=== PATIENT | female | born 1985 | race American Indian/Alaskan Native ===

== ENCOUNTER 2016-08-29 15:27 | Emergency (ER) | payer OTHER ==
[2016-08-29] MEDS ORDERED: TYLENOL PO ONE (18:22)
[2016-08-29 20:00] VITALS: BP 119/73
[2016-08-29] MEDS ORDERED: NACL 0.9% IR ONE (20:08)
[2016-08-29] MEDS ORDERED: PERCOCET 5/325 PO ONE (20:08)
[2016-08-29] MEDS ORDERED: XYLOCAINE 1% MPF 5 mL INFILTRATI ONE (20:08)
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
--- NOTE | 2016-08-29 21:09 | XRay Report ---
FINAL REPORT EXAM: XR WRIST 3 LT HISTORY: rt wrist injury with pain TECHNIQUE: 4 views of the left wrist PRIORS: None. FINDINGS: The bones are normally aligned and mineralized. The joint spaces are well-preserved. There is no evidence of acute fracture. The soft tissues are unremarkable. IMPRESSION: No evidence of acute fracture or subluxation.
== END 2016-08-29 22:20 | disposition home or self-care (01) ==
LOC: ED 15:27
DX: S01.511A Laceration without foreign body of lip, initial encounter (principal); M54.5 Low back pain; M25.50 Pain in unspecified joint; F17.200 Nicotine dependence, unspecified, uncomplicated; V89.2XXA Person injured in unspecified motor-vehicle accident, traffic, initial encounter; Y93.9 Activity, unspecified; Y92.410 Unspecified street and highway as the place of occurrence of the external cause; Y99.9 Unspecified external cause status

== ENCOUNTER 2017-07-05 09:40 | Emergency (ER) | payer SELFPAY ==
[2017-07-05] MEDS ORDERED: REGLAN IV ONE (10:14)
[2017-07-05] MEDS ORDERED: ZOFRAN ODT PO ONE (10:14)
[2017-07-05] MEDS ORDERED: NACL 0.9% 1000 ML 1,000 ML IV ONE ×2 (10:14→11:30)
[2017-07-05] MEDS ORDERED: BENTYL IM ONE (10:14)
--- NOTE | 2017-07-05 10:19 | Emergency Department Report ---
Chief Complaint: Abdominal Pain Stated Complaint: ABDOMINAL PAIN/VOMITING Time Seen by Provider: 07/05/17 10:16 - HPI History of Present Illness: pt is a 32 y/o aaf with hx cyclic N/V usually controlled with zofran, CoQ10 advise out of medication x 1 week abdominal pain with n/v x 2 days , does not have pcp at this time, last po intake yesterday. - Exam Vital Signs: Vital Signs 07/05/17 10:02 Temperature 97.4 F L Pulse Rate 51 L Respiratory 16 Rate Blood Pressure 126/79 O2 Sat by Pulse 100 Oximetry MSE screening note: Focused history and physical exam performed. Due to findings the following was ordered: ED Disposition for MSE Condition: Stable Instructions: Abdominal Pain (ED)
[2017-07-05 10:37] LABS: Basophils % (Auto) 0.3 % (0.0-1.8); Eosinophils % (Auto) 0.5 % (0.0-4.3); Hematocrit 40.7 % (30.3-42.9); Hemoglobin 13.4 gm/dl (10.1-14.3); Mean Corpuscular HGB Conc 33 % (30-34); Mean Corpuscular Hemoglobin 29 pg (28-32); Mean Corpuscular Volume 87 fl (79-97); Platelet Count 207 K/mm3 (140-440); Red Blood Count 4.66 M/mm3 (3.65-5.03); Red Cell Distribution Width 13.5 % (13.2-15.2); White Blood Count 15.6 K/mm3 (4.5-11.0)
[2017-07-05 10:56] LABS: Alanine Aminotransferase 50 units/L (7-56); Albumin 4.4 g/dL (3.9-5); Albumin/Globulin Ratio 1.5 %; Alkaline Phosphatase 98 units/L (35-129); Anion Gap 17 mmol/L; BUN/Creatinine Ratio 13; Bilirubin,Total < 0.20 mg/dL (0.1-1.2); Blood Urea Nitrogen 10 mg/dL (7-17); Calcium 8.7 mg/dL (8.4-10.2); Carbon Dioxide 25 mmol/L (22-30); Chloride 102.4 mmol/L (98-107); Glucose 143 mg/dL (65-100); Potassium 3.9 mmol/L (3.6-5.0); Sodium 140 mmol/L (137-145); Total Protein 7.4 g/dL (6.3-8.2)
--- NOTE | 2017-07-05 14:13 | Emergency Department Report ---
ED General Adult HPI - General Chief complaint: Abdominal Pain Stated complaint: ABDOMINAL PAIN/VOMITING Time Seen by Provider: 07/05/17 10:16 Source: patient, EMS Mode of arrival: Wheelchair Limitations: No Limitations - History of Present Illness Initial comments: Patient is a 32-year-old female past history of cyclic vomiting syndrome who presents with epigastric pain and nausea and vomiting. Patient states that she has not been able to hold down anything for the last couple days. She states that she lasts used marijuana yesterday. She states she uses marijuana for nausea. She smokes daily. Patient's epigastric pain is a 6 out of 10 as a burning type of pain of vomiting makes it worse nothing makes it better. Patient was recently at self full ED. Patient states that she took her Zofran at home however she vomited it up before it had any effect. Patient denies having any chest pain any shortness of breath or any fever. - Related Data Home Medications Medication Instructions Recorded Confirmed Last Taken medroxyPROGESTERone ACETA (NF) 400 mg IM [id number] 08/31/13 08/31/13 05/09/13 [Depo-Provera] Previous Rx's Medication Instructions Recorded Last Taken Type Dicyclomine [Bentyl] 20 mg PO TID PRN #20 tablet 08/31/13 Unknown Rx Ondansetron [Zofran Odt] 8 mg PO TID PRN #15 tab.rapdis 08/31/13 Unknown Rx Ibuprofen [Motrin] 800 mg PO Q8HR PRN #15 tablet 08/29/16 Unknown Rx Promethazine [Phenergan TAB] 25 mg PO Q6HR PRN #20 tab 07/05/17 Unknown Rx Allergies Allergy/AdvReac Type Severity Reaction Status Date / Time No Known Allergies Allergy Unverified 08/31/13 07:05 ED Review of Systems ROS: Stated complaint: ABDOMINAL PAIN/VOMITING Other details as noted in HPI Constitutional: denies: chills, fever Eyes: denies: eye pain, eye discharge, vision change ENT: denies: ear pain, throat pain Respiratory: denies: cough, shortness of breath, wheezing Cardiovascular: denies: chest pain, palpitations Endocrine: no symptoms reported Gastrointestinal: abdominal pain, nausea, vomiting. denies: diarrhea Genitourinary: denies: urgency, dysuria, discharge Musculoskeletal: denies: back pain, joint swelling, arthralgia Skin: denies: rash, lesions Neurological: denies: headache, weakness, paresthesias Psychiatric: denies: anxiety, depression Hematological/Lymphatic: denies: easy bleeding, easy bruising ED Past Medical Hx - Past Medical History Previous Medical History?: Yes Additional medical history: endometeriosis - Surgical History Past Surgical History?: Yes Additional Surgical History: Tubal - Social History Smoking Status: Current Every Day Smoker Substance Use Type: None - Medications Home Medications: Home Medications Medication Instructions Recorded Confirmed Last Taken Type Dicyclomine [Bentyl] 20 mg PO TID PRN #20 tablet 08/31/13 Unknown Rx Ondansetron [Zofran Odt] 8 mg PO TID PRN #15 tab.rapdis 08/31/13 Unknown Rx medroxyPROGESTERone ACETA (NF) 400 mg IM [id number] 08/31/13 08/31/13 05/09/13 History [Depo-Provera] Ibuprofen [Motrin] 800 mg PO Q8HR PRN #15 tablet 08/29/16 Unknown Rx Promethazine [Phenergan TAB] 25 mg PO Q6HR PRN #20 tab 07/05/17 Unknown Rx ED Physical Exam - General Limitations: No Limitations General appearance: alert, in no apparent distress - Head Head exam: Present: atraumatic, normocephalic - Eye Eye exam: Present: normal appearance - ENT ENT exam: Present: mucous membranes moist - Neck Neck exam: Present: normal inspection - Respiratory Respiratory exam: Present: normal lung sounds bilaterally. Absent: respiratory distress - Cardiovascular Cardiovascular Exam: Present: regular rate, normal rhythm. Absent: systolic murmur, diastolic murmur, rubs, gallop - GI/Abdominal GI/Abdominal exam: Present: soft, normal bowel sounds - Extremities Exam Extremities exam: Present: normal inspection - Back Exam Back exam: Present: normal inspection - Neurological Exam Neurological exam: Present: alert, oriented X3 - Psychiatric Psychiatric exam: Present: normal affect, normal mood - Skin Skin exam: Present: warm, dry, intact, normal color. Absent: rash ED Course Vital Signs 07/05/17 07/05/17 07/05/17 10:02 11:30 11:41 Temperature 97.4 F L Pulse Rate 51 L 45 L Respiratory 16 10 L Rate Blood Pressure 126/79 117/62 O2 Sat by Pulse 100 100 100 Oximetry 07/05/17 11:51 Temperature Pulse Rate Respiratory 16 Rate Blood Pressure O2 Sat by Pulse 98 Oximetry ED Medical Decision Making - Lab Data Result diagrams: 07/05/17 10:21 07/05/17 10:21 Lab Results 07/05/17 07/05/17 Range/Units 10:21 10:21 WBC 15.6 H (4.5-11.0) K/mm3 RBC 4.66 (3.65-5.03) M/mm3 Hgb 13.4 (10.1-14.3) gm/dl Hct 40.7 (30.3-42.9) % MCV 87 (79-97) fl MCH 29 (28-32) pg MCHC 33 (30-34) % RDW 13.5 (13.2-15.2) % Plt Count 207 (140-440) K/mm3 Lymph % (Auto) 15.9 (13.4-35.0) % Lake % (Auto) 6.0 (0.0-7.3) % Eos % (Auto) 0.5 (0.0-4.3) % Baso % (Auto) 0.3 (0.0-1.8) % Lymph # 2.5 (1.2-5.4) K/mm3 Lake # 0.9 H (0.0-0.8) K/mm3 Eos # 0.1 (0.0-0.4) K/mm3 Baso # 0.0 (0.0-0.1) K/mm3 Seg Neutrophils % 77.3 H (40.0-70.0) % Seg Neutrophils # 12.1 H (1.8-7.7) K/mm3 Sodium 140 (137-145) mmol/L Potassium 3.9 (3.6-5.0) mmol/L Chloride 102.4 (98-107) mmol/L Carbon Dioxide 25 (22-30) mmol/L Anion Gap 17 mmol/L BUN 10 (7-17) mg/dL Creatinine 0.8 (0.7-1.2) mg/dL Estimated GFR > 60 ml/min BUN/Creatinine Ratio 13 % Glucose 143 H (65-100) mg/dL Calcium 8.7 (8.4-10.2) mg/dL Total Bilirubin < 0.20 (0.1-1.2) mg/dL AST 35 (5-40) units/L ALT 50 (7-56) units/L Alkaline Phosphatase 98 (35-129) units/L Total Protein 7.4 (6.3-8.2) g/dL Albumin 4.4 (3.9-5) g/dL Albumin/Globulin Ratio 1.5 % - Medical Decision Making Chief medical diagnosis: Cannabinoid hyperemesis syndrome Differential medical diagnosis: Hypokalemia, dehydration, gastritis I will get IV fluids, CBC, CMP I am Bentyl and Reglan and Zofran. Patient just has mild leukocytosis on her blood work patient is feeling better after medication I will send patient home with vinegar and to take. Discussed patient is a plan additional verbal discharge instructions were given. Critical care attestation.: If time is entered above; I have spent that time in minutes in the direct care of this critically ill patient, excluding procedure time. ED Disposition Clinical Impression: Cannabinoid hyperemesis syndrome, Epigastric abdominal pain Disposition: TO HOME OR SELFCARE Is pt being admited?: No Does the pt Need Aspirin: No Condition: Stable Instructions: Cannabis Abuse (ED), Acute Nausea and Vomiting (ED) Prescriptions: Promethazine [Phenergan TAB] 25 mg PO Q6HR PRN #20 tab PRN Reason: Nausea Referrals: JAY OSWALD MD [Staff Physician] - 3-5 Days
[2017-07-05 16:23] VITALS: BP 120/69
== END 2017-07-05 16:24 | disposition home or self-care (01) ==
LOC: ED 09:40
DX: F12.988 Cannabis use, unspecified with other cannabis-induced disorder (principal); F17.200 Nicotine dependence, unspecified, uncomplicated
CPT/HCPCS: 36415; 80053; 85025; 96361; 96372; 96374; 99284; J0500; J2765; J7030; Q0162

== ENCOUNTER 2019-01-07 10:48 | Emergency (ER) | payer OTHER ==
[2019-01-07] MEDS ORDERED: NACL 0.9% 1000 ML 1,000 ML IV ONE (11:20)
[2019-01-07] MEDS ORDERED: PEPCID IV ONE (11:20)
[2019-01-07] MEDS ORDERED: HALDOL IM STA (11:20)
--- NOTE | 2019-01-07 11:21 | Emergency Department Report ---
ED Abdominal Pain HPI - General Chief Complaint: Nausea/Vomiting/Diarrhea Stated Complaint: [facility] EPISODE Time Seen by Provider: 01/07/19 11:15 Source: patient, EMS (verbal report from EMS.ems notes not available at time of chart dictation), RN notes reviewed, old records reviewed Mode of arrival: Stretcher Limitations: No Limitations - History of Present Illness Initial Comments: This is a 33-year-old female. The patient is not known to this provider previously. The patient is brought to the hospital by emergency medical services. Emergency medical services states that the patient's car smells like cannabis, weed. The patient reportedly has a history of cyclic vomiting syndrome, reportedly diagnosed in [place]. The patient presents to the emergency room today with complaint of nontraumatic "abdominal migraine." She reports that she has abdominal cramping and discomfort, and reports that symptoms today are consistent with prior episodes of exacerbations of cyclic vomiting syndrome. The patient makes no complaint of headache, neck pain, chest pain, urinary symptoms, and the patient endorses that she is not . Patient does endorse that exposure to hot bath, hot shower occasionally improve her symptoms. MD Complaint: abdominal pain -: Gradual Location: diffuse Severity: moderate, severe Quality: cramping Consistency: constant Improves With: other Worsens With: other - Related Data Home Medications Medication Instructions Recorded Confirmed Last Taken medroxyPROGESTERone ACETA (NF) 400 mg IM [id number] 08/31/13 08/31/13 05/09/13 [Depo-Provera] Previous Rx's Medication Instructions Recorded Last Taken Type Ondansetron [Zofran Odt] 8 mg PO TID PRN #15 tab.rapdis 08/31/13 Unknown Rx Ibuprofen [Motrin] 800 mg PO Q8HR PRN #15 tablet 08/29/16 Unknown Rx Promethazine [Phenergan TAB] 25 mg PO Q6HR PRN #20 tab 07/05/17 Unknown Rx Dicyclomine [Bentyl] 20 mg PO TID PRN #20 tablet 01/07/19 Unknown Rx Ondansetron [Zofran Odt] 4 mg PO Q8HR PRN #20 tab.rapdis 01/07/19 Unknown Rx Promethazine [Phenergan SUPPOS] 50 mg MT Q6H PRN #15 supp.rect 01/07/19 Unknown Rx Allergies Allergy/AdvReac Type Severity Reaction Status Date / Time No Known Allergies Allergy Unverified 01/07/19 11:14 ED Review of Systems ROS: Stated complaint: CVS EPISODE Other details as noted in HPI Constitutional: malaise Respiratory: denies: cough Cardiovascular: denies: chest pain Gastrointestinal: abdominal pain Genitourinary: denies: dysuria Neurological: weakness ED Past Medical Hx - Past Medical History Previous Medical History?: Yes Additional medical history: endometeriosis - Surgical History Past Surgical History?: Yes Additional Surgical History: Tubal - Social History Smoking Status: Current Every Day Smoker - Medications Home Medications: Home Medications Medication Instructions Recorded Confirmed Last Taken Type Ondansetron [Zofran Odt] 8 mg PO TID PRN #15 tab.rapdis 08/31/13 Unknown Rx medroxyPROGESTERone ACETA (NF) 400 mg IM [id number] 08/31/13 08/31/13 05/09/13 History [Depo-Provera] Ibuprofen [Motrin] 800 mg PO Q8HR PRN #15 tablet 08/29/16 Unknown Rx Promethazine [Phenergan TAB] 25 mg PO Q6HR PRN #20 tab 07/05/17 Unknown Rx Dicyclomine [Bentyl] 20 mg PO TID PRN #20 tablet 01/07/19 Unknown Rx Ondansetron [Zofran Odt] 4 mg PO Q8HR PRN #20 tab.rapdis 01/07/19 Unknown Rx Promethazine [Phenergan SUPPOS] 50 mg MT Q6H PRN #15 supp.rect 01/07/19 Unknown Rx ED Physical Exam - General Limitations: No Limitations General appearance: alert, anxious - Head Head exam: Present: atraumatic, normocephalic - Eye Eye exam: Present: normal appearance, EOMI - ENT ENT exam: Present: normal exam, normal orophraynx, mucous membranes moist, normal external ear exam - Neck Neck exam: Present: normal inspection, full ROM. Absent: tenderness, meningismus - Respiratory Respiratory exam: Present: normal lung sounds bilaterally. Absent: respiratory distress - Cardiovascular Cardiovascular Exam: Present: regular rate, normal rhythm, normal heart sounds. Absent: bradycardia, tachycardia, irregular rhythm, systolic murmur, diastolic murmur, rubs, gallop - GI/Abdominal GI/Abdominal exam: Present: soft, tenderness, other (there is mild diffuse abdominal tenderness, with no rebound, guarding or peritoneal signs.). Absent: distended, guarding, rebound, rigid, pulsatile mass - Extremities Exam Extremities exam: Present: normal inspection, full ROM, other (2+ pulses noted in the bilateral upper, lower extremities. Compartments soft. No long bony tenderness. The pelvis is stable.). Absent: pedal edema, joint swelling, calf tenderness - Back Exam Back exam: Present: normal inspection, full ROM. Absent: tenderness, CVA tenderness (R), CVA tenderness (L), paraspinal tenderness, vertebral tenderness - Neurological Exam Neurological exam: Present: alert, oriented X3, normal gait, other (there is no facial droop. The tongue is midline. Extraocular movements are intact bilaterally. There is 5 out of 5 strength in 4 extremities.) - Psychiatric Psychiatric exam: Present: anxious - Skin Skin exam: Present: warm, dry, intact, normal color. Absent: rash ED Course - Reevaluation(s) Reevaluation #1: 01/07/19 11:41 Differential diagnosis, including not limited to: Cyclic vomiting syndrome, can nabinoid hyperemesis syndrome, dehydration, electrolyte derangement Assessment and plan: 33-year-old female with probable exacerbation of either cyclic vomiting syndrome or cannabinoid hyperemesis syndrome. Explained to the patient that she would need to abstain from cannabis consumption. The patient is alert and oriented 3, clinically sober at this time, and free from distracting injury. We recommended haloperidol as initial therapy for her symptoms. The patient declined this therapy. We explained to the patient that we did not think that she was intoxicated, and that we did not feel that she is withdrawing from any particular substance. The patient still declined haloperidol. She requested Phenergan from the nurse. Explained to the patient that we would be happy to administer Phenergan either orally or rectally, but that we do not as per our institutions protocol, administer this medication intramuscularly or intravenously. We then explained to the patient that we will be happy to give her alternative anti-emetictherapy, such as Reglan or Zofran. The patient at this point in time indicated that she is declining further care. The patient is going to sign out AGAINST MEDICAL ADVICE. The patient exhibits decision-making capacity. Risks of leaving without a complete medical evaluation, including , disability, paralysis, loss of quality of life are discussed with the patient, and this conversation is witnessed by nurse Desi Bolanos The patient was counseled that she should and could return to the emergency room right away if and when she changes her mind. ED Medical Decision Making - Lab Data Result diagrams: 01/07/19 Unknown 01/07/19 Unknown Lab Results 01/07/19 01/07/19 Range/Units Unknown Unknown WBC 9.4 (4.5-11.0) K/mm3 RBC 4.46 (3.65-5.03) M/mm3 Hgb 13.0 (10.1-14.3) gm/dl Hct 38.2 (30.3-42.9) % MCV 86 (79-97) fl MCH 29 (28-32) pg MCHC 34 (30-34) % RDW 13.3 (13.2-15.2) % Plt Count 177 (140-440) K/mm3 Lipase 20 (13-60) units/L Lab Results 01/07/19 01/07/19 01/07/19 Range/Units Unknown Unknown Unknown WBC 9.4 (4.5-11.0) K/mm3 RBC 4.46 (3.65-5.03) M/mm3 Hgb 13.0 (10.1-14.3) gm/dl Hct 38.2 (30.3-42.9) % MCV 86 (79-97) fl MCH 29 (28-32) pg MCHC 34 (30-34) % RDW 13.3 (13.2-15.2) % Plt Count 177 (140-440) K/mm3 Sodium 141 (137-145) mmol/L Potassium 3.7 (3.6-5.0) mmol/L Chloride 103.4 (98-107) mmol/L Carbon Dioxide 24 (22-30) mmol/L Anion Gap 17 mmol/L BUN 9 (7-17) mg/dL Creatinine 0.8 (0.7-1.2) mg/dL Estimated GFR > 60 ml/min BUN/Creatinine Ratio 11 % Glucose 91 (65-100) mg/dL Calcium 9.1 (8.4-10.2) mg/dL Magnesium 1.60 L (1.7-2.3) mg/dL Total Bilirubin 0.40 (0.1-1.2) mg/dL AST 15 (5-40) units/L ALT 9 (7-56) units/L Alkaline Phosphatase 80 (35-129) units/L Total Creatine Kinase 79 (30-135) units/L Total Protein 6.9 (6.3-8.2) g/dL Albumin 4.3 (3.9-5) g/dL Albumin/Globulin Ratio 1.7 % Lipase (13-60) units/L HCG, Quant < 2 (0-4) mIU/mL 01/07/19 Range/Units Unknown WBC (4.5-11.0) K/mm3 RBC (3.65-5.03) M/mm3 Hgb (10.1-14.3) gm/dl Hct (30.3-42.9) % MCV (79-97) fl MCH (28-32) pg MCHC (30-34) % RDW (13.2-15.2) % Plt Count (140-440) K/mm3 Sodium (137-145) mmol/L Potassium (3.6-5.0) mmol/L Chloride (98-107) mmol/L Carbon Dioxide (22-30) mmol/L Anion Gap mmol/L BUN (7-17) mg/dL Creatinine (0.7-1.2) mg/dL Estimated GFR ml/min BUN/Creatinine Ratio % Glucose (65-100) mg/dL Calcium (8.4-10.2) mg/dL Magnesium (1.7-2.3) mg/dL Total Bilirubin (0.1-1.2) mg/dL AST (5-40) units/L ALT (7-56) units/L Alkaline Phosphatase (35-129) units/L Total Creatine Kinase (30-135) units/L Total Protein (6.3-8.2) g/dL Albumin (3.9-5) g/dL Albumin/Globulin Ratio % Lipase 20 (13-60) units/L HCG, Quant (0-4) mIU/mL - EKG Data -: EKG Interpreted by [facility] EKG shows normal: sinus rhythm Rate: normal - EKG Data 01/07/19 11:44 This is a normal sinus rhythm, 70 bpm, normal axis, QTC within normal limits, poor R progression, abnormal EKG, no prior for comparison, not consistent with ST elevation myocardial infarction. Critical care attestation.: If time is entered above; I have spent that time in minutes in the direct care of this critically ill patient, excluding procedure time. ED Disposition Clinical Impression: History of abdominal pain Disposition: DC-07 LEFT AGAINST MED ADVICE Is pt being admited?: No Does the pt Need Aspirin: No Condition: Undetermined Additional Instructions: As we discussed, you have left the hospital/emergency room AGAINST MEDICAL ADVICE. By leaving, you risked , disability, paralysis, permanent loss of quality of life. The ER is open 24 hours a day, 7 days a week. It never closes. Please return to the emergency room right away if and when you change your mind. If you decide not to return to the emergency room, please follow-up with the listed physician referrals as soon as possible. Prescriptions: Dicyclomine [Bentyl] 20 mg PO TID PRN #20 tablet PRN Reason: abd pain Promethazine [Phenergan SUPPOS] 50 mg MT Q6H PRN #15 supp.rect PRN Reason: Nausea Ondansetron [Zofran Odt] 4 mg PO Q8HR PRN #20 tab.rapdis PRN Reason: Nausea Referrals: PRIMARY CARE, [Primary Care Provider] - 3-5 Days [facility] [Provider Group] - 3-5 Days [facility] [Provider Group] - 3-5 Days
[2019-01-07 11:30] LABS: Hematocrit 38.2 % (30.3-42.9); Mean Corpuscular HGB Conc 34 % (30-34); Mean Corpuscular Volume 86 fl (79-97); Platelet Count 177 K/mm3 (140-440); Red Blood Count 4.46 M/mm3 (3.65-5.03); Red Cell Distribution Width 13.3 % (13.2-15.2)
[2019-01-07 11:44] LABS: Alanine Aminotransferase 9 units/L (7-56); Albumin 4.3 g/dL (3.9-5); BUN/Creatinine Ratio 11; Blood Urea Nitrogen 9 mg/dL (7-17); Calcium 9.1 mg/dL (8.4-10.2); Hemolysis Index 3
== END 2019-01-07 11:35 | disposition left against medical advice (07) ==
LOC: ED 10:48
DX: R10.84 Generalized abdominal pain (principal); F17.200 Nicotine dependence, unspecified, uncomplicated; Z98.890 Other specified postprocedural states
CPT/HCPCS: 36415; 80053; 82550; 83690; 83735; 84702; 85027; 93005; 93010; J1630; J7030

== ENCOUNTER 2019-08-18 22:20 | Emergency (ER) | payer SELFPAY ==
[2019-08-18 22:53] VITALS: BP 103/71
--- NOTE | 2019-08-19 01:23 | Emergency Department Report ---
ED General Adult HPI - General Chief complaint: Upper Respiratory Infection Stated complaint: FLU SX Time Seen by Provider: 08/19/19 01:03 Source: patient Mode of arrival: Ambulatory Limitations: No Limitations - History of Present Illness Initial comments: Patient is a 34-year-old female who is presenting with flulike symptoms for the past 2 days. Patient has had wet sounding cough which is not productive, body aches, and chills. Patient denies nausea vomiting is able to keep fluids down. Patient has not taken any olru-toe-qxuyfpi medications as yet. Patient denies neck stiffness headache. - Related Data Home Medications Medication Instructions Recorded Confirmed Last Taken medroxyPROGESTERone ACETA (NF) 400 mg IM [id number] 08/31/13 08/31/13 05/09/13 [Depo-Provera] Previous Rx's Medication Instructions Recorded Last Taken Type Ondansetron [Zofran Odt] 8 mg PO TID PRN #15 tab.rapdis 08/31/13 Unknown Rx Ibuprofen [Motrin] 800 mg PO Q8HR PRN #15 tablet 08/29/16 Unknown Rx Promethazine [Phenergan TAB] 25 mg PO Q6HR PRN #20 tab 07/05/17 Unknown Rx Dicyclomine [Bentyl] 20 mg PO TID PRN #20 tablet 01/07/19 Unknown Rx Ondansetron [Zofran Odt] 4 mg PO Q8HR PRN #20 tab.rapdis 01/07/19 Unknown Rx Promethazine [Phenergan SUPPOS] 50 mg AL Q6H PRN #15 supp.rect 01/07/19 Unknown Rx Allergies Allergy/AdvReac Type Severity Reaction Status Date / Time No Known Allergies Allergy Unverified 01/07/19 11:14 ED Review of Systems ROS: Stated complaint: FLU SX Other details as noted in HPI Comment: All other systems reviewed and negative ED Past Medical Hx - Past Medical History Previous Medical History?: Yes Additional medical history: endometeriosis, Cyclic Vomiting Syndrome - Surgical History Past Surgical History?: Yes Additional Surgical History: Tubal - Social History Smoking Status: Current Every Day Smoker Substance Use Type: None - Medications Home Medications: Home Medications Medication Instructions Recorded Confirmed Last Taken Type Ondansetron [Zofran Odt] 8 mg PO TID PRN #15 tab.rapdis 08/31/13 Unknown Rx medroxyPROGESTERone ACETA (NF) 400 mg IM [id number] 08/31/13 08/31/13 05/09/13 History [Depo-Provera] Ibuprofen [Motrin] 800 mg PO Q8HR PRN #15 tablet 08/29/16 Unknown Rx Promethazine [Phenergan TAB] 25 mg PO Q6HR PRN #20 tab 07/05/17 Unknown Rx Dicyclomine [Bentyl] 20 mg PO TID PRN #20 tablet 01/07/19 Unknown Rx Ondansetron [Zofran Odt] 4 mg PO Q8HR PRN #20 tab.rapdis 01/07/19 Unknown Rx Promethazine [Phenergan SUPPOS] 50 mg AL Q6H PRN #15 supp.rect 01/07/19 Unknown Rx ED Physical Exam - General Limitations: No Limitations General appearance: alert, in no apparent distress - Head Head exam: Present: atraumatic, normocephalic - Eye Eye exam: Present: normal appearance, PERRL, EOMI - ENT ENT exam: Present: normal orophraynx, mucous membranes moist - Neck Neck exam: Present: normal inspection - Respiratory Respiratory exam: Present: normal lung sounds bilaterally. Absent: respiratory distress, wheezes, rales, rhonchi - Cardiovascular Cardiovascular Exam: Present: regular rate, normal rhythm, normal heart sounds. Absent: systolic murmur, diastolic murmur, rubs, gallop - GI/Abdominal GI/Abdominal exam: Present: soft, normal bowel sounds. Absent: distended, tenderness, guarding, rebound - Extremities Exam Extremities exam: Present: normal inspection - Back Exam Back exam: Present: normal inspection - Neurological Exam Neurological exam: Present: alert, oriented X3 - Psychiatric Psychiatric exam: Present: normal affect, normal mood - Skin Skin exam: Present: warm, dry, intact, normal color. Absent: rash ED Course Vital Signs 08/18/19 22:41 Temperature 99.3 F Pulse Rate 92 H Respiratory 18 Rate Blood Pressure 103/71 O2 Sat by Pulse 98 Oximetry ED Medical Decision Making - Medical Decision Making Patient given outpatient referrals and given suggestions on [id number] medication she can take for her flulike symptoms. Critical care attestation.: If time is entered above; I have spent that time in minutes in the direct care of this critically ill patient, excluding procedure time. ED Disposition Clinical Impression: Flu-like symptoms Disposition: MED SCREENING EXAM-LEFT Is pt being admited?: No Does the pt Need Aspirin: No Condition: Stable Instructions: Influenza (ED) Additional Instructions: Please try [id number] Mucinex cold and flu for Tamiflu. Both these medications cover the majority of the symptoms that you have. Please by Flonase [id number] as well and use daily. Motrin can be used for fever reduction and body aches. Up to 800 mg of Motrin can be taken every 8 hours. Referrals: DANIEL NAVARRETE MD [Staff Physician] - 3-5 Days Time of Disposition: 01:22
== END 2019-08-19 02:10 | disposition left against medical advice (07) ==
LOC: ED 22:20
DX: R05 Cough (principal); M79.10 Myalgia, unspecified site; F17.200 Nicotine dependence, unspecified, uncomplicated; Z79.899 Other long term (current) drug therapy; Z98.890 Other specified postprocedural states

== ENCOUNTER 2019-08-30 16:47 | Emergency (ER) | payer SELFPAY ==
--- NOTE | 2019-08-30 18:26 | Event Note ---
ED Screening Note Date of service: 08/30/19 Time: 18:25 ED Screening Note: 34 yo f presents with sob and intermittent coughing x 2 weeks, no relief This initial assessment/diagnostic orders/clinical plan/treatment(s) is/are subject to change based on patients health status, clinical progression and re- assessment by fellow clinical providers in the ED. Further treatment and workup at subsequent clinical providers discretion. Patient/guardian urged not to elope from the ED as their condition may be serious if not clinically assessed and managed. Initial orders include: cxr
[2019-08-30 18:27] VITALS: BP 101/50
--- NOTE | 2019-08-30 19:07 | XRay Report ---
CHEST 2 VIEWS INDICATION: cough. COMPARISON: none FINDINGS: Support devices: None. Heart: Within normal limits. Lungs: No acute air space or interstitial disease. Pleura: No significant pleural effusion. No pneumothorax. Additional findings: None. IMPRESSION: 1. No acute findings. Signer Name: Tarik Shafer MD Signed: 08/30/2019 7:02 PM Workstation Name: [email or web address]
[2019-08-30] MEDS ORDERED: dexAMETHasone 4 MG/ML VIAL PO ONE (21:05)
[2019-08-30] MEDS ORDERED: traMADol 50 MG TAB PO ONE (21:05)
[2019-08-30] MEDS ORDERED: BENZONATATE 100 MG CAP PO ONE (21:05)
[2019-08-30] MEDS ORDERED: IPRATROPIUM/ALBUTEROL SULFATE 3 ML AMPUL.NEB IH ONE (21:05)
--- NOTE | 2019-08-30 21:43 | Emergency Department Report ---
ED General Adult HPI - General Chief complaint: Dyspnea/Respdistress Stated complaint: SOB, CHEST PAIN Time Seen by Provider: 08/30/19 20:31 Source: patient Mode of arrival: Ambulatory Limitations: No Limitations - History of Present Illness Initial comments: Patient presents to the emergency department with a chief complaint of a cough, wheezing and chest pain with cough. Patient states last week she was diagnosed with the flu and was given a prescription for Tamiflu. Patient states since that time she status and the cough. Patient states the cough is so significant she is began to have chest pain with coughing. The patient denies bo chest pain, abdominal pain, or headache -: Gradual Location: chest Radiation: non-radiation Severity scale (0 -10): 2 Quality: aching Consistency: intermittent Improves with: rest Worsens with: other (coughing) Associated Symptoms: denies other symptoms Treatments Prior to Arrival: none - Related Data Home Medications Medication Instructions Recorded Confirmed Last Taken medroxyPROGESTERone ACETA (NF) 400 mg IM [id number] 08/31/13 08/31/13 05/09/13 [Depo-Provera] Previous Rx's Medication Instructions Recorded Last Taken Type Ondansetron [Zofran Odt] 8 mg PO TID PRN #15 tab.rapdis 08/31/13 Unknown Rx Ibuprofen [Motrin] 800 mg PO Q8HR PRN #15 tablet 08/29/16 Unknown Rx Promethazine [Phenergan TAB] 25 mg PO Q6HR PRN #20 tab 07/05/17 Unknown Rx Dicyclomine [Bentyl] 20 mg PO TID PRN #20 tablet 01/07/19 Unknown Rx Ondansetron [Zofran Odt] 4 mg PO Q8HR PRN #20 tab.rapdis 01/07/19 Unknown Rx Promethazine [Phenergan SUPPOS] 50 mg GA Q6H PRN #15 supp.rect 01/07/19 Unknown Rx Albuterol INH(or & Nicu Only) 2 puff IH Q4HR PRN #1 inhalation 08/30/19 Unknown Rx [ProAir HFA Inhaler] Azithromycin [Zithromax Z-LEANDRO] 250 mg PO DAILY #6 tablet 08/30/19 Unknown Rx Benzonatate [Tessalon Perles] 100 mg PO Q8HR PRN #20 capsule 08/30/19 Unknown Rx Naproxen [Naprosyn] 500 mg PO BID PRN #20 tablet 08/30/19 Unknown Rx guaiFENesin/CODEINE [Robitussin AC] 5 ml PO Q12HR PRN #180 oral.liqd 08/30/19 Unknown Rx predniSONE [Deltasone] 20 mg PO DAILY #15 tablet 08/30/19 Unknown Rx Allergies Allergy/AdvReac Type Severity Reaction Status Date / Time No Known Allergies Allergy Unverified 01/07/19 11:14 ED Review of Systems ROS: Stated complaint: SOB, CHEST PAIN Other details as noted in HPI Constitutional: denies: chills, fever Eyes: denies: eye pain, eye discharge, vision change ENT: denies: ear pain, throat pain Respiratory: cough. denies: shortness of breath, wheezing Cardiovascular: denies: chest pain, palpitations Endocrine: no symptoms reported Gastrointestinal: denies: abdominal pain, nausea, diarrhea Genitourinary: denies: urgency, dysuria, discharge Musculoskeletal: denies: back pain, joint swelling, arthralgia Skin: denies: rash, lesions Neurological: denies: headache, weakness, paresthesias Psychiatric: denies: anxiety, depression Hematological/Lymphatic: denies: easy bleeding, easy bruising ED Past Medical Hx - Past Medical History Previous Medical History?: Yes Additional medical history: endometeriosis, Cyclic Vomiting Syndrome - Surgical History Past Surgical History?: Yes Additional Surgical History: Tubal - Social History Smoking Status: Current Every Day Smoker Substance Use Type: None - Medications Home Medications: Home Medications Medication Instructions Recorded Confirmed Last Taken Type Ondansetron [Zofran Odt] 8 mg PO TID PRN #15 tab.rapdis 08/31/13 Unknown Rx medroxyPROGESTERone ACETA (NF) 400 mg IM [id number] 08/31/13 08/31/13 05/09/13 History [Depo-Provera] Ibuprofen [Motrin] 800 mg PO Q8HR PRN #15 tablet 08/29/16 Unknown Rx Promethazine [Phenergan TAB] 25 mg PO Q6HR PRN #20 tab 07/05/17 Unknown Rx Dicyclomine [Bentyl] 20 mg PO TID PRN #20 tablet 01/07/19 Unknown Rx Ondansetron [Zofran Odt] 4 mg PO Q8HR PRN #20 tab.rapdis 01/07/19 Unknown Rx Promethazine [Phenergan SUPPOS] 50 mg GA Q6H PRN #15 supp.rect 01/07/19 Unknown Rx Albuterol INH(or & Nicu Only) 2 puff IH Q4HR PRN #1 inhalation 08/30/19 Unknown Rx [ProAir HFA Inhaler] Azithromycin [Zithromax Z-LEANDRO] 250 mg PO DAILY #6 tablet 08/30/19 Unknown Rx Benzonatate [Tessalon Perles] 100 mg PO Q8HR PRN #20 capsule 08/30/19 Unknown Rx Naproxen [Naprosyn] 500 mg PO BID PRN #20 tablet 08/30/19 Unknown Rx guaiFENesin/CODEINE [Robitussin AC] 5 ml PO Q12HR PRN #180 oral.liqd 08/30/19 Unknown Rx predniSONE [Deltasone] 20 mg PO DAILY #15 tablet 08/30/19 Unknown Rx ED Physical Exam - General Limitations: No Limitations General appearance: alert, in no apparent distress - Head Head exam: Present: atraumatic, normocephalic - Eye Eye exam: Present: normal appearance, PERRL, EOMI - ENT ENT exam: Present: mucous membranes moist - Neck Neck exam: Present: normal inspection - Respiratory Respiratory exam: Present: normal lung sounds bilaterally, wheezes (mild expiratory wheezing), chest wall tenderness (diffuse tenderness to palpation of anterior chest wall). Absent: respiratory distress - Cardiovascular Cardiovascular Exam: Present: regular rate, normal rhythm. Absent: systolic murmur, diastolic murmur, rubs, gallop - GI/Abdominal GI/Abdominal exam: Present: soft, normal bowel sounds. Absent: distended, tenderness - Extremities Exam Extremities exam: Present: normal inspection - Back Exam Back exam: Present: normal inspection - Neurological Exam Neurological exam: Present: alert, oriented X3, CN II-XII intact. Absent: motor sensory deficit - Psychiatric Psychiatric exam: Present: normal affect, normal mood - Skin Skin exam: Present: warm, dry, intact, normal color. Absent: rash ED Course Vital Signs 08/30/19 18:25 Temperature 97.9 F Pulse Rate 60 Respiratory 22 Rate Blood Pressure 101/50 [Right] O2 Sat by Pulse 100 Oximetry ED Medical Decision Making - Radiology Data Radiology results: report reviewed - Medical Decision Making Discussed plan of care with patient Critical care attestation.: If time is entered above; I have spent that time in minutes in the direct care of this critically ill patient, excluding procedure time. ED Disposition Clinical Impression: Pleurisy, Bronchitis Disposition: DC- TO HOME OR SELFCARE Is pt being admited?: No Does the pt Need Aspirin: No Condition: Stable Instructions: Acute Bronchitis (ED), Pleurisy (ED) Additional Instructions: return if worse Referrals: PRIMARY CARE,MD [Primary Care Provider] - 3-5 Days [facility] [Provider Group] - 3-5 Days [facility] [Provider Group] - 3-5 Days Time of Disposition: 21:44
== END 2019-08-30 22:36 | disposition home or self-care (01) ==
LOC: ED 16:47
DX: J40 Bronchitis, not specified as acute or chronic (principal); F17.200 Nicotine dependence, unspecified, uncomplicated; Z98.890 Other specified postprocedural states; Z79.899 Other long term (current) drug therapy
CPT/HCPCS: 71046; 94640; 99283; J1100; 94644